=== PATIENT | female | born 1990 | race Caucasian/White ===

== ENCOUNTER → 2020-05-10 | Outpatient (REF) | payer OTHER ==
[2020-05-10 13:56] LABS: HEMATOCRIT 36.6 % (36.0-47.0); HEMOGLOBIN 11.9 g/dl (12.0-15.5); MEAN CORPUSCULAR HEMOGLOBIN 31.2 pg (27.0-33.0); MEAN CORPUSCULAR HGB CONC 32.5 g/dl (32.0-36.5); MEAN CORPUSCULAR VOLUME 95.8 fl (80.0-96.0); PLATELET COUNT, AUTOMATED 206 10^3/uL (150-450); RED BLOOD COUNT 3.82 10^6/uL (4.00-5.40); WHITE BLOOD COUNT 6.6 10^3/uL (4.0-10.0)
[2020-05-10 15:17] LABS: HEPATITIS C VIRUS ABY INDEX < 0.0 INDEX (<0.8); HIV 1&2 SCREEN CENTAUR NEGATIVE (NEGATIVE)
== END ==
LOC: M PLALAB 10:23
PROVIDERS: ATTEND Advanced Practice Midwife
DX: Z34.91 Encounter for supervision of normal pregnancy, unspecified, first trimester (principal)

== ENCOUNTER → 2020-07-05 | Outpatient (CLI) | payer OTHER ==
--- NOTE | 2020-07-05 13:08 | REP ---
INDICATION: ANATOMY/ROB 11/28/20 COMPARISON: None. TECHNIQUE: Transabdominal obstetrical ultrasound with color Doppler evaluation. FINDINGS: Examination demonstrates a single live intrauterine in breech presentation. motion is identified by technologist. Placenta is noted posterior and grade 1 without evidence for placenta previa or abruption. Amniotic fluid volume is normal. Cervix measures 3.9 cm in length and appears closed.. Gestational age by LMP 19 weeks 1 day with ROB 11/28/2020. Gestational age by current measurements 19 weeks 4 days with ROB 11/25/2020. FHR equals 146 beats per minute. BPD: 4.3 cm at 19 weeks 0 days HC: 16.9 cm at 19 weeks 4 days AC: 14.3 cm at 19 weeks 4 days FL: 3.2 cm at 19 weeks 6 days HL: 3.0 cm at 19 weeks 5 days HC/AC: 1.18 Estimated weight 306 grams (79thpercentile). Anatomical assessment demonstrates normal structures including cranium, choroid plexus, cavum, cerebellum/posterior fossa, facial features, lungs, four-chamber heart/ventricular outflow tracts, diaphragm, stomach, cord insertion/three-vessel cord, kidneys/bladder, spine, and extremities. IMPRESSION: Single live intrauterine in breech presentation demonstrating appropriate estimated weight. Anatomical assessment is complete and normal. No gross abnormalities are identified. <Electronically signed by Ford Meyer > 07/05/20 [id number]
== END ==
LOC: M WHC 10:00
PROVIDERS: ATTEND Advanced Practice Midwife
DX: Z36.89 Encounter for other specified antenatal screening (principal); Z3A.12 12 weeks gestation of pregnancy

== ENCOUNTER → 2020-08-24 | Outpatient (REF) | payer OTHER ==
[2020-08-24 13:05] LABS: HEMATOCRIT 37.5 % (36.0-47.0); MEAN CORPUSCULAR HEMOGLOBIN 32.1 pg (27.0-33.0); MEAN CORPUSCULAR VOLUME 100.3 fl (80.0-96.0); PLATELET COUNT, AUTOMATED 224 10^3/uL (150-450); RED BLOOD COUNT 3.74 10^6/uL (4.00-5.40); WHITE BLOOD COUNT 8.6 10^3/uL (4.0-10.0)
== END ==
LOC: M PLALAB 09:16
PROVIDERS: ATTEND Advanced Practice Midwife
DX: O99.332 Smoking (tobacco) complicating pregnancy, second trimester (principal)

== ENCOUNTER 2020-10-26 19:58 | Outpatient (CLI) | payer OTHER ==
[~2020-10-26] VITALS: Ht 165.1 cm; Wt 56.1 kg
[2020-10-26] MEDS ORDERED: HOME MED LIST COMPLETE! XX SCH (20:30)
[2020-10-26 20:34] VITALS: BP 112/70
[2020-10-26 21:06] LABS: APPEARANCE, URINE HAZY (CLEAR); BACTERIA, URINE AUTO 1+ (NEGATIVE); BILIRUBIN, URINE AUTO NEGATIVE (NEGATIVE); BLOOD, URINE BLOOD NEGATIVE (NEGATIVE); COLOR, URINE YELLOW (YELLOW); GLUCOSE, URINE (UA) AUTO NEGATIVE (NEGATIVE); KETONE, URINE AUTO 1+ mg/dL (NEGATIVE); LEUKOCYTE ESTERASE, URINE AUTO 1+ (NEGATIVE); MUCUS, URINE SMALL (NEGATIVE); NITRITE, URINE AUTO NEGATIVE (NEGATIVE); PROTEIN, URINE AUTO NEGATIVE (NEGATIVE); RBC, URINE AUTO 2 /HPF (0-3); SPECIFIC GRAVITY URINE AUTO 1.012 (1.002-1.035); SQUAMOUS EPITHELIAL CELL UR AU 10 /HPF (0-6); UROBILINOGEN, URINE AUTO 0.2 mg/dL (0.0-2.0); WBC, URINE AUTO 5 /HPF (0-3)
--- NOTE | 2020-10-26 22:22 | IPNPDOC ---
Text Note Date of Service The patient was seen on 10/26/20. NOTE Outpatient 30yo ROB 11/28/2020. Presents @ 35 w2d. Presents with complaints of contractions and "sausage fingers" Appears mildly uncomfortable. UC @ 2-4 minutes, mild Cat I tracing Cervix soft, LTC, far posterior UA 1+ ketones, 1+ leuk esterase, 5 WBC, 1+ bacteria Mild lower extremity edema noted, nonpitting Observed x 2 hours with oral hydration UC have diminished, irregular and mild "Fingers feel better." Discharged home. Will treat urine pending culture. Enc increased hydration Keep appt Thursday VS,Fishbone, I+O VS, Fishbone, I+O Vital Signs Date Time Temp Pulse Resp B/P (MAP) Pulse Ox O2 Delivery O2 Flow Rate FiO2 10/26/20 20:34 98.0 74 16 112/70 (84) Rachel Dorsey CNM Oct 26, 2020 22:22
== END 2020-10-26 22:20 | disposition home or self-care (01) ==
LOC: M LDO 19:58
PROVIDERS: ATTEND Advanced Practice Midwife
DX: O60.03 Preterm labor without delivery, third trimester (principal); R60.0 Localized edema; Z3A.35 35 weeks gestation of pregnancy
CPT/HCPCS: 59025; 81001; 87081; 87086; G0378; G0463

== ENCOUNTER 2020-11-09 21:52 | Outpatient (CLI) | payer OTHER ==
[~2020-11-09] VITALS: Ht 165.1 cm; Wt 57.6 kg
[2020-11-09 22:04] VITALS: BP 110/66
[2020-11-09] MEDS ORDERED: LR 1,000 ML IV ONE (23:00)
[2020-11-10] MEDS ORDERED: LR 1,000 ML IV SCH (01:35)
[2020-11-10 02:08] LABS: APPEARANCE, URINE CLEAR (CLEAR); BACTERIA, URINE AUTO NEGATIVE (NEGATIVE); BILIRUBIN, URINE AUTO NEGATIVE (NEGATIVE); BLOOD, URINE BLOOD NEGATIVE (NEGATIVE); COLOR, URINE STRAW (YELLOW); GLUCOSE, URINE (UA) AUTO NEGATIVE (NEGATIVE); KETONE, URINE AUTO 1+ mg/dL (NEGATIVE); LEUKOCYTE ESTERASE, URINE AUTO NEGATIVE (NEGATIVE); NITRITE, URINE AUTO NEGATIVE (NEGATIVE); PROTEIN, URINE AUTO NEGATIVE (NEGATIVE); RBC, URINE AUTO 0 /HPF (0-3); SPECIFIC GRAVITY URINE AUTO 1.004 (1.002-1.035); SQUAMOUS EPITHELIAL CELL UR AU 0 /HPF (0-6); UROBILINOGEN, URINE AUTO 0.2 mg/dL (0.0-2.0); WBC, URINE AUTO 0 /HPF (0-3)
[2020-11-10 03:29] VITALS: BP 83/52
[2020-11-10 03:34] VITALS: BP 85/52
[2020-11-10] MEDS ORDERED: PRENTAB9 PO (21:04)
[2020-11-10] MEDS ORDERED: ACET-897 PO (21:04)
[2020-11-10] MEDS ORDERED: TUMS500C PO (21:04)
== END 2020-11-10 06:25 | disposition home or self-care (01) ==
LOC: M LDO 21:52
PROVIDERS: ATTEND Advanced Practice Midwife
DX: O60.03 Preterm labor without delivery, third trimester (principal); Z3A.37 37 weeks gestation of pregnancy
CPT/HCPCS: 59025; 81001; 87086; 96360; 96361; G0378; G0463

== ENCOUNTER 2020-11-10 20:31 | Outpatient (CLI) | payer OTHER ==
[~2020-11-10] VITALS: Ht 165.1 cm; Wt 59.1 kg
[2020-11-10 20:56] VITALS: BP 91/56
[2020-11-10] MEDS ORDERED: PRENTAB9 PO (21:04)
[2020-11-10] MEDS ORDERED: TUMS500C PO (21:04)
[2020-11-10] MEDS ORDERED: ACET-897 PO (21:04)
--- NOTE | 2020-11-10 21:34 | IPNPDOC ---
Text Note Date of Service The patient was seen on 11/10/20. NOTE Labor and Delivery Triage Note: S: 30 years old at 37w2d presents with c/o contractions and decreased . Denies vaginal bleeding or LOF. O: vss, AF rare ctx Cat 1 tracing Gen: well appearing, NAD Abd: gravid, soft, nttp cx:: 1-/2/50/-1 A/P: 30-year-old at 37w2d not in Labor reassuring status -home with Labor precautions and FKCs. -f/u at next OB appt Ruthie Jones MD VS,Katarina, I+O VS, Katarina, I+O Vital Signs Date Time Temp Pulse Resp B/P (MAP) Pulse Ox O2 Delivery O2 Flow Rate FiO2 11/10/20 20:56 98.7 77 16 91/56 (68) RUTHIE JONES MD. Nov 10, 2020 21:34
== END 2020-11-10 21:39 | disposition home or self-care (01) ==
LOC: M LDO 20:31
PROVIDERS: ATTEND Obstetrics & Gynecology
DX: O36.8130 Decreased fetal movements, third trimester, not applicable or unspecified (principal); Z3A.37 37 weeks gestation of pregnancy; O47.1 False labor at or after 37 completed weeks of gestation; Z88.2 Allergy status to sulfonamides
CPT/HCPCS: 59025; G0378; G0463

== ENCOUNTER 2020-11-16 15:27 | Outpatient (CLI) | payer OTHER ==
[~2020-11-16] VITALS: Ht 165.1 cm; Wt 56.7 kg
[~2020-11-16 15:27] MED LIST: ACET-897 PO; PRENTAB9 PO; TUMS500C PO
[2020-11-16 15:40] VITALS: BP 108/59
[2020-11-16] MEDS ORDERED: HOME MED LIST COMPLETE! XX SCH (15:45)
--- NOTE | 2020-11-16 16:40 | IPNPDOC ---
Text Note Date of Service The patient was seen on 11/16/20. NOTE Outpatient 30yo ROB 11/28/2020. Presents @ 38w2d with complaints all day, stronger this afternoon. Denies LOF, bleeding. Reports good movement. Cat I tracing, UC mild, Q 2-4 minutes SVE 2+/50/-2, essentially the same as last office exam Remained unchanged over the course of 2 hours. Contractions have diminished, Cat I tracing. Discharged home. Routine precautions. Keep next appt. VS,Fishbone, I+O VS, Fishbone, I+O Vital Signs Date Time Temp Pulse Resp B/P (MAP) Pulse Ox O2 Delivery O2 Flow Rate FiO2 11/16/20 15:40 97.3 93 20 108/59 (75) Rachel Dorsey CNM Nov 16, 2020 16:37
[2020-11-16 17:20] VITALS: BP 102/59
== END 2020-11-16 18:55 | disposition home or self-care (01) ==
LOC: M LDO 15:27
PROVIDERS: ATTEND Advanced Practice Midwife
DX: O60.03 Preterm labor without delivery, third trimester (principal); Z3A.38 38 weeks gestation of pregnancy; Z88.2 Allergy status to sulfonamides
CPT/HCPCS: 59025; G0378; G0463

== ENCOUNTER 2020-11-24 08:28 | Inpatient (IN) | payer OTHER ==
[~2020-11-24] VITALS: Ht 165.1 cm; Wt 57.1 kg
[2020-11-24] VITALS (17 sets, daily range): BP systolic 92–117; BP diastolic 50–70
[2020-11-24] MEDS ORDERED: HOME MED LIST COMPLETE! XX SCH (09:10)
[2020-11-24] MEDS ORDERED: OXYTOCIN DRIP 30 UNITS in IV 1 EA IV SCH ×2 (10:15→20:20)
[2020-11-24] MEDS: LR 1,000 ML IV SCH ×2 (10:46→17:31)
[2020-11-24 11:00] LABS: HEMATOCRIT 37.3 % (36.0-47.0); HEMOGLOBIN 12.4 g/dl (12.0-15.5); MEAN CORPUSCULAR HEMOGLOBIN 31.2 pg (27.0-33.0); MEAN CORPUSCULAR HGB CONC 33.2 g/dl (32.0-36.5); MEAN CORPUSCULAR VOLUME 93.7 fl (80.0-96.0); PLATELET COUNT, AUTOMATED 212 10^3/uL (150-450); RED BLOOD COUNT 3.98 10^6/uL (4.00-5.40); WHITE BLOOD COUNT 10.4 10^3/uL (4.0-10.0)
[2020-11-24] MEDS ORDERED: PROMETHAZINE INJ 25 MG/ML VIAL (J2550) IV PRN (17:20)
[2020-11-24] MEDS ORDERED: BUTORPHANOL 2 MG/ML INJ (J0595) IV ONE (17:30)
--- NOTE | 2020-11-24 17:43 | HPEPDOC ---
Obstetrical History & Physical General Date of Admission Nov 24, 2020 at 08:28 History of Present Illness induction of labor Chief Complaint: Induction of labor Information Provided By: Patient Age: 30 : 3 Livin Care Care: Good Care Dating Final EDC: Nov 28, 2020 Final EDC by: LMP EGA at Admission: 39 Past Medical History Past Obstetrical History #1: Date of Delivery: Feb 24, 2014 Type of Delivery: Spontaneous Vaginal Del. Sex of Infant: Female Complications: No Past Obstetrical History #2: Date of Delivery: Mar 18, 2015 Type of Delivery: Spontaneous Vaginal Del. Sex of Infant: Female Complications: No NEEDLEWORKER History: Human papillomavirus(HPV) Family History Significant Family History: Hypertension Social History Marital Status: Family situation: Spouse/partner home Psychosocial History: No pertinent psych hx * Smoker: current smoker Alcohol: Denies Drugs: denies Allergies Coded Allergies: Sulfa (Sulfonamide Antibiotics) (Verified Allergy, Unknown, 11/10/20) Medications Scheduled No.137/Iron/Folic Acd ( Vitamin Tablet) 1 Each Tablet, 1 TAB PO DAILY Physical Examination Physical Examination GENERAL: Alert and oriented times three. BREAST: . ABDOMEN: Gravid and non-tender to touch. FETUS: Is vertex (VTX) by sterile vaginal examination (SVE), fetus is vertex (VTX) by David. HEART RATE: Regular rate and rhythm. LUNGS: Clear to auscultation (CTA). Vital Signs/I&O Vital Signs Date Time Temp Pulse Resp B/P (MAP) Pulse Ox O2 Delivery O2 Flow Rate FiO2 11/24/20 17:05 61 18 100/66 (77) 11/24/20 14:05 97.8 Laboratory Data 24H LABS Laboratory Tests 2 11/24/20 08:57: Serology Scanned Report Hepatitis B Testing 11/24/20 10:44: Nucleated Red Blood Cells % (auto) 0.0 CBC/BMP Laboratory Tests 11/24/20 10:44 Pertinent Laboratoy Data Blood Type: A+ RBC Antibody Screen: Negative HIV: Negative Hepatitis B: Negative Rapid Plasma Reagin: Nonreactive Rubella: Immune Chlamydia/Gonorrhea: Negative Group B Streptococcus: Negative Glucose Tolerance Test: 78 Anatomy Ultrasound Placenta Location: Posterior Normal Anatomy: Yes Placenta Previa: No Vaginal Examination Dilation: 3 cm Effacement: 70% Station: -2 Cervical Consistency: Medium Cervical Position: Posterior Presentation: Cephalic presentation Assessment Variability: Moderate Accelerations: Positive Tocometer Frequency: irregular Assessment/Plan Assessment 30yo at 39w3d for social induction of labor reassuring status Plan Admit and orient. Psychiatric Orderly and consent. Group B Streptococcus (GBS) negative. Labs and intravenous (IV) per unit protocol. Counseled on Pitocin and induction of labor (IOL). Anticipate normal spontaneous delivery (). C-S as appropriate. KIRSTEN JOSEPH MD. Nov 24, 2020 17:43
[2020-11-24] MEDS ORDERED: FENTANYL 2MCG/ML ROPIVACAINE 0.2% IN 0.9% NACL 100ML IVBAG As Ordered ONE (19:38)
[2020-11-24 20:15] LABS: CORD GAS ABE V -5.2; CORD GAS HCO3 V 21.3 MEQ/L; CORD GAS O2 SAT V 61.8 %; CORD GAS PCO2 V 44.5 mmHg; CORD GAS PH V 7.297 UNITS; CORD GAS PO2 V 25.7 mmHg; CORD GAS SBC V 19.4 MEQ/L; CORD GAS TCO2 V 22.6 MEQ/L
[2020-11-24 20:17] LABS: CORD GAS ABE A -8.4; CORD GAS O2 SAT A 38.5 %; CORD GAS PCO2 A 51.5 mmHg; CORD GAS PH A 7.206 UNITS; CORD GAS PO2 A 18.3 mmHg; CORD GAS SBC A 16.5 MEQ/L; CORD GAS TCO2 A 21.5 MEQ/L
[2020-11-24] MEDS ORDERED: MOM 30ML SUSPENSION UDC PO PRN (20:20)
[2020-11-24] MEDS ORDERED: IBUPROFEN 600MG TAB PO PRN (20:20)
[2020-11-24] MEDS ORDERED: METHYLERGONOVINE MALEATE 0.2 MG TAB PO PRN (20:20)
[2020-11-24] MEDS ORDERED: DOCUSATE SODIUM 100MG CAPSULE PO PRN (20:20)
[2020-11-24] MEDS ORDERED: DIBUCAINE 1% OINTMENT 30GM TOP PRN (20:20)
[2020-11-24] MEDS ORDERED: MEASLES,MUMPS,RUBELLA VACCINE INJ (MMR-II) (90707) SC SCH (20:20)
[2020-11-24] MEDS ORDERED: RHOGAM 300 MCG (1500 IU) INJ (J2790) IM SCH (20:20)
[2020-11-24] MEDS ORDERED: ACETAMINOPHEN 500 MG TAB PO PRN (20:20)
[2020-11-24] MEDS ORDERED: ACETAMINOPHEN TAB 650MG DOSE (2X325MG) PO PRN (20:20)
--- NOTE | 2020-11-24 20:23 | DNPDOC ---
[facility] Delivery Note Delivery Note DATE OF DELIVERY: 11/24/2020 TIME OF : 1951 GENDER: Male. APGARS: 8 and 9 WEIGHT: 3420 g or 7 lbs. 9 oz. LACERATIONS: none ANESTHESIA: none ESTIMATED BLOOD LOSS: 200 ml COUNTS: 5 laparotomy sponges accounted for prior to after delivery. 2 sharps removed from delivery field. DELIVERY NOTE: On 11/24/2020 at 1951 Mrs. Rosas 30-year-old 3 now para 3 had a spontaneous vaginal delivery of a liveborn male Apgars 8 and 9. Head was delivered occiput anterior (OA), followed by delivery of the shoulders and corpus. was handed to mom with a good cry. Cord was clamped times two and was cut by support person under my direction. Placenta was then drained and delivered grossly intact. A premixed bag of 500 mL of normal saline with 30 units of Pitocin was then bolused along with uterine massage until the uterus was firm. On inspection, cervix, vagina, perineum was grossly intact and hemostatic. Mom and baby in recovery on stable condition. KIRSTEN JOSEPH MD. Nov 24, 2020 20:23
[2020-11-24] MEDS: IBUPROFEN 800 MG TAB PO PRN (21:28)
[2020-11-25 06:09] VITALS: BP 107/62
[2020-11-25] MEDS: PRENATAL VITAMINS CHEWABLE TABLET PO SCH (08:28)
[2020-11-25] MEDS: IBUPROFEN 800 MG TAB PO PRN (08:29)
[2020-11-25] MEDS ORDERED: INFLUENZA QUADRIVALENT PF VACCINE 0.5ML SYRINGE IM ONE (09:00)
--- NOTE | 2020-11-25 09:06 | IPNPDOC ---
Progress Note Date of Service: Nov 25, 2020 Day#: 1 Progress Note SUBJECT: Doing well without complaints. Ambulating, voiding and pain is well- controlled. Reports minimal lochia. OBJECTIVE: VITAL SIGNS: Within normal limits, afebrile. Alert and oriented times three. Abdomen: Fundus firm at U-2. Soft, NTTP. Ext: neg calf tenderness. ASSESSMENT: day #1 status post . Recovering in stable condition. PLAN: 1. Continue routine care 2. Discharge plans for tomorrow VS, I&O, 24H, Fishbone Vital Signs/I&O Vital Signs Date Time Temp Pulse Resp B/P (MAP) Pulse Ox O2 Delivery O2 Flow Rate FiO2 11/25/20 06:09 96.2 68 16 107/62 (77) 99 Room Air I&O- Last 24 Hours up to 6 AM 11/25/20 05:59 Intake Total 2332 ml Output Total 1300 ml Balance 1032 ml Laboratory Data 24H LABS Laboratory Tests 2 11/24/20 10:44: Nucleated Red Blood Cells % (auto) 0.0 11/24/20 20:08: Cord Arterial Blood pH 7.206, Cord Arterial Blood PCO2 51.5, Cord Arterial Blood PO2 18.3, Cord Arterial Blood HCO3 20.0, Cord Arterial Blood Total CO2 21.5, Cord Arterial Blood Base Excess -8.4, Cord Arterial Base Excess (Standard 16.5, Cord Arterial Bld Oxygen Saturation 38.5, Cord Venous Blood pH 7.297, Cord Venous Blood PCO2 44.5, Cord Venous Blood PO2 25.7, Cord Venous Blood HCO3 21.3, Cord Venous Blood Total CO2 22.6, Cord Venous Base Excess (Actual) -5.2, Cord Venous Base Excess (Standard) 19.4, Cord Venous Blood Oxygen Saturation 61.8 CBC/BMP Laboratory Tests 11/24/20 10:44 KIRSTEN JOSEPH MD. Nov 25, 2020 09:06
[2020-11-25 17:55] VITALS: BP 105/59
[2020-11-26] MEDS: PRENATAL VITAMINS CHEWABLE TABLET PO SCH (08:55)
[2020-11-26] MEDS ORDERED: INFLUENZA QUADRIVALENT PF VACCINE 0.5ML SYRINGE IM ONE (09:00)
[2020-11-26 09:08] VITALS: BP 105/59
== END 2020-11-26 12:55 | disposition home or self-care (01) | DRG 807 ==
LOC: M LDI 08:28 → M OBS 21:41
PROVIDERS: ADMIT Obstetrics & Gynecology; ATTEND Obstetrics & Gynecology
PROC: 10E0XZZ Delivery of Products of Conception, External Approach (ICD-10-PCS; principal; 2020-11-24)
PROC: 3E033VJ Introduction of Other Hormone into Peripheral Vein, Percutaneous Approach (ICD-10-PCS; 2020-11-24)
DX: O80 Encounter for full-term uncomplicated delivery (principal); Z37.0 Single live birth; Z3A.39 39 weeks gestation of pregnancy

== ENCOUNTER → 2022-05-02 | Outpatient (CLI) | payer OTHER ==
[2022-05-02 14:17] LABS: HEMATOCRIT 39.5 % (36.0-47.0); HEMOGLOBIN 12.8 g/dl (12.0-15.5); MEAN CORPUSCULAR HEMOGLOBIN 29.8 pg (27.0-33.0); MEAN CORPUSCULAR HGB CONC 32.4 g/dl (32.0-36.5); MEAN CORPUSCULAR VOLUME 92.1 fl (80.0-96.0); PLATELET COUNT, AUTOMATED 232 10^3/uL (150-450); RED BLOOD COUNT 4.29 10^6/uL (4.00-5.40); WHITE BLOOD COUNT 6.4 10^3/uL (4.0-10.0)
[2022-05-02 14:40] LABS: HIV 1&2 SCREEN CENTAUR NEGATIVE (NEGATIVE)
[2022-05-02 15:36] LABS: GC DNA AMPLIFICATION NEGATIVE (NEGATIVE)
== END ==
LOC: M PLALAB 10:41
PROVIDERS: ATTEND Advanced Practice Midwife
DX: Z34.91 Encounter for supervision of normal pregnancy, unspecified, first trimester (principal)

== ENCOUNTER → 2022-05-29 | Outpatient (REF) | payer OTHER | LOC: M PLALAB 11:59 | PROVIDERS: ATTEND Advanced Practice Midwife | DX: Z34.91 Encounter for supervision of normal pregnancy, unspecified, first trimester (principal) | CPT/HCPCS: 87086; G0463 ==

== ENCOUNTER → 2022-07-16 | Outpatient (CLI) | payer OTHER | LOC: M RAD 11:32 | PROVIDERS: ATTEND Advanced Practice Midwife | DX: Z34.81 Encounter for supervision of other normal pregnancy, first trimester (principal) ==

== ENCOUNTER → 2022-09-22 | Outpatient (CLI) | payer OTHER ==
[2022-09-22 15:39] LABS: HEMATOCRIT 36.4 % (36.0-47.0); HEMOGLOBIN 11.7 g/dl (12.0-15.5); MEAN CORPUSCULAR HEMOGLOBIN 30.9 pg (27.0-33.0); MEAN CORPUSCULAR HGB CONC 32.1 g/dl (32.0-36.5); PLATELET COUNT, AUTOMATED 174 10^3/uL (150-450); RED BLOOD COUNT 3.79 10^6/uL (4.00-5.40)
[2022-09-22 17:08] LABS: GC DNA AMPLIFICATION NEGATIVE (NEGATIVE)
== END ==
LOC: M PLALAB 13:01
PROVIDERS: ATTEND Specialist
DX: Z36.9 Encounter for antenatal screening, unspecified (principal)

== ENCOUNTER 2022-10-17 18:05 | Outpatient (CLI) | payer OTHER ==
[~2022-10-17] VITALS: Ht 165.1 cm; Wt 54.1 kg
[2022-10-17 18:23] VITALS: BP 106/65
[2022-10-17] MEDS ORDERED: TUMS750C5 PO (18:30)
[2022-10-17] MEDS ORDERED: HOME MED LIST COMPLETE! XX SCH (18:30)
[2022-10-17] MEDS ORDERED: ACET-897 PO ×2 (18:30→18:39)
[2022-10-17] MEDS ORDERED: TUMS750C22 PO (18:40)
[2022-10-17] MEDS ORDERED: PREN1CHW6 PO (18:41)
[2022-10-17] MEDS ORDERED: LR 1,000 ML IV ONE (19:50)
[2022-10-17] MEDS ORDERED: METOCLOPRAMIDE 5 MG TAB PO ONE (19:50)
[2022-10-17] MEDS ORDERED: FIORICET TAB PO ONE (19:50)
[2022-10-17 20:07] LABS: HEMATOCRIT 31.6 % (36.0-47.0); HEMOGLOBIN 10.2 g/dl (12.0-15.5); MEAN CORPUSCULAR HEMOGLOBIN 29.6 pg (27.0-33.0); MEAN CORPUSCULAR HGB CONC 32.3 g/dl (32.0-36.5); MEAN CORPUSCULAR VOLUME 91.6 fl (80.0-96.0); PLATELET COUNT, AUTOMATED 162 10^3/uL (150-450); RED BLOOD COUNT 3.45 10^6/uL (4.00-5.40); WHITE BLOOD COUNT 7.2 10^3/uL (4.0-10.0)
[2022-10-17 20:27] VITALS: BP 99/57
[2022-10-17 20:44] LABS: ALBUMIN 2.8 G/DL (3.2-5.2); ALKALINE PHOSPHATASE 122 U/L (46-116); ALT/SGPT < 9 U/L (7.0-40); AST/SGOT 14 U/L (<34); BILIRUBIN,TOTAL 0.6 MG/DL (0.3-1.2); BLOOD UREA NITROGEN < 5 MG/DL (9-23); CALCIUM LEVEL 8.4 MG/DL (8.5-10.1); CARBON DIOXIDE LEVEL 23 MMOL/L (20-31); CHLORIDE LEVEL 108 MMOL/L (98-107); CREATININE FOR GFR 0.42 MG/DL (0.55-1.30); GLOMERULAR FILTRATION RATE > 60.0 (>60); GLUCOSE, FASTING 96 MG/DL (60-100); POTASSIUM SERUM 3.8 MMOL/L (3.5-5.1); SODIUM LEVEL 141 MMOL/L (136-145); TOTAL PROTEIN 6.1 G/DL (5.7-8.2)
[2022-10-17 21:49] VITALS: BP 101/55
[2022-10-17 22:55] VITALS: BP 86/45
[2022-10-17 22:57] VITALS: BP 93/51
== END 2022-10-17 22:56 | disposition home or self-care (01) ==
LOC: M LDO 18:05
PROVIDERS: ATTEND Advanced Practice Midwife
DX: O98.513 Other viral diseases complicating pregnancy, third trimester (principal); U07.1 COVID-19; Z3A.33 33 weeks gestation of pregnancy
CPT/HCPCS: 36415; 59025; 80053; 81001; 85027; 87086; 87486; 87581; 87633; 87798; G0463

== ENCOUNTER 2022-11-03 19:56 | Outpatient (CLI) | payer OTHER ==
[~2022-11-03] VITALS: Ht 165.1 cm; Wt 55.3 kg
[~2022-11-03 19:56] MED LIST changes: +PREN1CHW6 PO; +TUMS750C22 PO; +TUMS750C5 PO
[2022-11-03] MEDS ORDERED: HOME MED LIST COMPLETE! XX SCH (20:15)
[2022-11-03 20:23] VITALS: BP 98/75; O2SAT 100
== END 2022-11-03 21:07 | disposition home or self-care (01) ==
LOC: M LDO 19:56
PROVIDERS: ATTEND Advanced Practice Midwife
DX: O47.03 False labor before 37 completed weeks of gestation, third trimester (principal); Z3A.36 36 weeks gestation of pregnancy; Z88.2 Allergy status to sulfonamides
CPT/HCPCS: 59025; 76815; 87081; G0463

== ENCOUNTER 2022-11-08 21:03 | Outpatient (CLI) | payer OTHER ==
[~2022-11-08] VITALS: Ht 165.1 cm; Wt 56.1 kg
[2022-11-08 21:15] VITALS: BP 108/71
[2022-11-08] MEDS ORDERED: HOME MED LIST COMPLETE! XX SCH (21:20)
== END 2022-11-08 22:42 | disposition home or self-care (01) ==
LOC: M LDO 21:03
PROVIDERS: ATTEND Obstetrics & Gynecology
DX: O47.03 False labor before 37 completed weeks of gestation, third trimester (principal); Z3A.36 36 weeks gestation of pregnancy
CPT/HCPCS: 59025; G0463

== ENCOUNTER 2022-11-17 23:12 | Outpatient (CLI) | payer OTHER ==
[~2022-11-17] VITALS: Ht 165.1 cm; Wt 56.7 kg
[2022-11-17 23:24] VITALS: BP 109/75
[2022-11-17] MEDS ORDERED: HOME MED LIST COMPLETE! XX SCH (23:30)
[2022-11-18 01:12] VITALS: BP 96/55
== END 2022-11-18 01:25 | disposition home or self-care (01) ==
LOC: M LDO 23:12
PROVIDERS: ATTEND Advanced Practice Midwife
DX: O47.1 False labor at or after 37 completed weeks of gestation (principal); Z3A.38 38 weeks gestation of pregnancy
CPT/HCPCS: 59025; G0463

== ENCOUNTER → 2023-04-23 | Outpatient (CLI) | payer OTHER | LOC: M PLALAB 11:22 | PROVIDERS: ATTEND Advanced Practice Midwife | DX: Z80.3 Family history of malignant neoplasm of breast (principal); Z84.81 Family history of carrier of genetic disease ==

== ENCOUNTER → 2023-04-28 | Outpatient (CLI) | payer OTHER ==
[~2023-04-28] MED LIST changes: +ALBU8.5H; +DOXY-443; +PRED20TA
== END ==
LOC: M WUC 11:10
PROVIDERS: ATTEND Nurse Practitioner Family
DX: R05.9 Cough, unspecified (principal); R30.0 Dysuria

== ENCOUNTER 2023-04-29 11:08 | Emergency (ER) | payer OTHER ==
[~2023-04-29] VITALS: Ht 165.1 cm; Wt 45.1 kg
[~2023-04-29 11:08] MED LIST changes: -ALBU8.5H; -DOXY-443; -PRED20TA
[2023-04-29] MEDS ORDERED: DOXY-443 (11:34)
[2023-04-29] MEDS ORDERED: PRED20TA (11:34)
[2023-04-29] MEDS ORDERED: ALBU8.5H (11:34)
[2023-04-29 13:11] LABS: BASO % 0.4 % (0.0-1.0); HEMATOCRIT 38.4 % (36.0-47.0); HEMOGLOBIN 12.6 g/dl (12.0-15.5); LYMPH # 0.5 10^3/uL (1.5-5.0); LYMPH % 6.3 % (24.0-44.0); MEAN CORPUSCULAR HGB CONC 32.8 g/dl (32.0-36.5); MEAN CORPUSCULAR VOLUME 88.5 fl (80.0-96.0); MONO # 0.7 10^3/uL (0.0-0.8); MONO % 8.9 % (2.0-8.0); NEUTROPHILS # 6.5 10^3/uL (1.5-8.5); PLATELET COUNT, AUTOMATED 170 10^3/uL (150-450); RED BLOOD COUNT 4.34 10^6/uL (4.00-5.40); WHITE BLOOD COUNT 7.7 10^3/uL (4.0-10.0)
[2023-04-29 13:34] LABS: HCG, SERUM QUALITATIVE NEGATIVE (NEGATIVE)
[2023-04-29 13:43] LABS: BLOOD UREA NITROGEN < 5 MG/DL (9-23); CALCIUM LEVEL 8.7 MG/DL (8.5-10.1); CARBON DIOXIDE LEVEL 20 MMOL/L (20-31); CHLORIDE LEVEL 104 MMOL/L (98-107); GLOMERULAR FILTRATION RATE > 60.0 (>60); GLUCOSE, FASTING 91 MG/DL (60-100); POTASSIUM SERUM 4.7 MMOL/L (3.5-5.1); SODIUM LEVEL 131 MMOL/L (136-145)
[2023-04-29] MEDS: NS 1,000 ML IV ONE (15:00)
[2023-04-29] MEDS: KETOROLAC 30 MG/ML 1ML VIAL IV ONE (15:00)
[2023-04-29 16:32] VITALS: BP 99/58; TEMP 98.1; O2SAT 99
== END 2023-04-29 16:35 | disposition home or self-care (01) ==
LOC: M ED 11:08
DX: E87.1 Hypo-osmolality and hyponatremia (principal); R07.89 Other chest pain; Z87.01 Personal history of pneumonia (recurrent); Z87.09 Personal history of other diseases of the respiratory system; Z87.891 Personal history of nicotine dependence; Z88.2 Allergy status to sulfonamides
CPT/HCPCS: 80048; 84703; 85025; 85379; 87486; 87581; 87633; 87798; 96361; 96374; 99284; J1885

== ENCOUNTER → 2024-01-03 | Outpatient (REF) | payer OTHER ==
[~2024-01-03] MED LIST changes: +ALBU8.5H; +DOXY-441; +PRED20TA
[2024-01-03 19:35] LABS: Trichomonas vaginalis (AMP) NOT DETECTED (NEGATIVE)
[2024-01-03 19:59] LABS: GC DNA AMPLIFICATION NEGATIVE (NEGATIVE)
== END ==
LOC: M LAB REF 17:27
PROVIDERS: ATTEND Registered Nurse
DX: N76.0 Acute vaginitis (principal); A60.04 Herpesviral vulvovaginitis; N39.0 Urinary tract infection, site not specified